=== PATIENT | female | born 1985 | race Caucasian/White ===

== ENCOUNTER → 2019-12-12 | Outpatient (CLI) | payer OTHER | END | disposition home or self-care (01) | LOC: COVID19 00:21 | PROVIDERS: ATTEND Obstetrics & Gynecology | DX: Z01.812 Encounter for preprocedural laboratory examination (principal); Z20.828 Contact with and (suspected) exposure to other viral communicable diseases ==

== ENCOUNTER → 2019-12-17 | Day surgery (SDC) | payer OTHER | LOC: RAD 11-20 08:00 → SDC 11-20 08:00 | PROVIDERS: ATTEND Obstetrics & Gynecology | DX: N97.9 Female infertility, unspecified (principal); N94.6 Dysmenorrhea, unspecified; N92.0 Excessive and frequent menstruation with regular cycle; Z87.59 Personal history of other complications of pregnancy, childbirth and the puerperium; Z90.79 Acquired absence of other genital organ(s); Z86.19 Personal history of other infectious and parasitic diseases ==

== ENCOUNTER → 2020-02-20 | Outpatient (CLI) | payer OTHER ==
[~2020-02-20] MED LIST: Motrin,Rufen800 MG PO
== END | disposition home or self-care (01) ==
LOC: COVID19 10:05
PROVIDERS: ATTEND Obstetrics & Gynecology
DX: Z01.812 Encounter for preprocedural laboratory examination (principal); Z20.822 Contact with and (suspected) exposure to COVID-19

== ENCOUNTER → 2020-02-25 | Day surgery (SDC) | payer OTHER ==
[~2020-02-25] VITALS: Ht 149.8 cm; Wt 84.4 kg
[2020-02-25 09:07] VITALS: BP 126/82
[2020-02-25 10:36] VITALS: BP 143/97
[2020-02-25 10:52] VITALS: BP 136/76
[2020-02-25 11:06] VITALS: BP 129/71
== END ==
LOC: SDC 02-20 01:24
PROVIDERS: ATTEND Obstetrics & Gynecology
DX: N92.0 Excessive and frequent menstruation with regular cycle (principal); N94.6 Dysmenorrhea, unspecified; N84.0 Polyp of corpus uteri; N93.8 Other specified abnormal uterine and vaginal bleeding; F32.9 Major depressive disorder, single episode, unspecified; G43.909 Migraine, unspecified, not intractable, without status migrainosus; F41.9 Anxiety disorder, unspecified; Z79.899 Other long term (current) drug therapy

== ENCOUNTER → 2021-03-18 | Outpatient (CLI) | payer OTHER | END | disposition home or self-care (01) | LOC: LAB 10:24 | PROVIDERS: ATTEND Nurse Practitioner Women's Health | DX: N92.6 Irregular menstruation, unspecified (principal) ==